=== PATIENT | female | born 2000 ===

== ENCOUNTER 2023-01-04 10:53 | Inpatient (IN) | payer MEDICAID ==
[~2023-01-04] VITALS: Ht 162.6 cm; Wt 106.1 kg
[2023-01-04 12:14] LABS: Basophils # (auto) 0 10 ^3/uL (0-0.2); Basophils % (auto) 0.3 % (0.0-2.0); Hematocrit 36.4 % (36.0-46.0); Hemoglobin 11.8 g/dL (12.2-16.2); Monocytes # (auto) 0.4 10 ^3/uL (0-1.3); Monocytes % (auto) 3.3 % (0.0-12.0); Red Blood Cells 4.49 10^6/uL (4.0-5.20)
[2023-01-04 12:16] LABS: Eosinophils # (auto) 0 10 ^3/uL (0-0.8); Eosinophils % (auto) 0.3 % (0.0-7.0); Lymphocytes # (auto) 1.9 10 ^3/uL (0.4-5.4); Lymphocytes % (auto) 15.3 % (10.0-50.0); Mean Corpuscular Hemoglobin 26.3 pg (28.0-32.0); Mean Corpuscular Hgb Conc. 32.4 g/dL (32.0-36.0); Mean Corpuscular Volume 81.1 fL (80.0-100.0); Neutrophils # (auto) 10.2 10 ^3/uL (1.6-8.6); Neutrophils % (auto) 80.8 % (37.0-80.0); Nucleated Red Blood Cells % 0.2 %; Red Cell Distribution Width 14.1 % (11.8-14.3); White Blood Cell 12.6 10^3/uL (4.4-10.8)
[2023-01-04 12:29] LABS: Albumin 2.6 g/dL (3.4-5.0); Calcium 8.5 mg/dL (8.5-10.1); Potassium 3.9 mmol/L (3.5-5.1)
[2023-01-04 12:33] LABS: BUN/Creatinine Ratio 12.1 (10.0-20.0); Bilirubin, Total 0.3 mg/dL (0.2-1.0); Total Protein 6.6 g/dL (6.4-8.2)
[2023-01-04 12:39] LABS: INR 0.92 (0.9-1.15); Partial Thromboplastin Time 27.1 sec (24.6-33.4)
[2023-01-04 12:39] LABS: Alcohol, Urine < 3.0 mg/dL (0-10); Amphetamine Screen, Urine NEGATIVE (NEGATIVE); Barbiturate Scree,Urine NEGATIVE (NEGATIVE); Benzodiazephine Screen, Urine NEGATIVE (NEGATIVE); Cannabinoid Screen, Urine NEGATIVE (NEGATIVE); Cocaine Screen, Urine NEGATIVE (NEGATIVE); Opiate Scree,Urine NEGATIVE (NEGATIVE); Phencyclidine Screen, Urine NEGATIVE (NEGATIVE)
[2023-01-04] MEDS ORDERED: PHISODERM TOP SOLN 240ML BTL TOP PRN (12:45)
[2023-01-04] MEDS ORDERED: PROMETHAZINE HCL 25 MG/ML 1ML IV PRN (12:45)
[2023-01-04] MEDS ORDERED: WITCH HAZEL-GLYCERIN PAD TOP PRN (12:45)
[2023-01-04] MEDS ORDERED: DERMOPLAST 60ML BOTTLE TOP PRN (12:45)
[2023-01-04] MEDS ORDERED: LIDOCAINE 2%HCL (LOCAL ANESTH.) INJ 20ML MDV IJ PRN (12:45)
[2023-01-04] MEDS ORDERED: ceFAZolin 1GM/50ML 50 ML IV ONE (12:45)
[2023-01-04 12:53] LABS: Urine Bacteria FEW /hpf (None Seen); Urine Blood Negative /uL (Negative); Urine Mucus FEW (None Seen); Urine Specific Gravity 1.017 (1.001-1.035); Urine WBC 12 /hpf (0 - 5)
[2023-01-04] MEDS: LACTATED RINGER'S 1,000 ML IV SCH (13:59)
[2023-01-04] MEDS ORDERED: MORPHINE SULF PF 5 MG/10 ML VIAL ONE (15:20)
[2023-01-04] MEDS ORDERED: MIDAZOLAM HCL 2MG/2ML 2ml VIAL (1mg/ml) ONE (15:22)
[2023-01-04] MEDS ORDERED: fentaNYL CITRATE 100 MCG/2 ML VL ONE (15:22)
[2023-01-04] MEDS ORDERED: TETRACAINE 1% INJ 2 ML VIAL IJ ONE (15:27)
[2023-01-04] MEDS ORDERED: IBUP800T27 PO (15:42)
[2023-01-04] MEDS ORDERED: DOCU-94 PO (15:42)
[2023-01-04] MEDS ORDERED: HYDR-4902 PO (15:42)
[2023-01-04] MEDS ORDERED: LACT. RINGERS/OXYTOCIN 20UNITS 1,000 ML IV ONE ×2 (15:45→16:45)
[2023-01-04] MEDS ORDERED: ONDANSETRON HCL 4 MG/2 ML VIAL IV PRN ×3 (15:45→16:45)
[2023-01-04] MEDS ORDERED: ceFAZolin 1GM/50ML 50 ML IV SCH ×2 (15:45→16:45)
[2023-01-04] MEDS ORDERED: GUM (CHEWING) 1 GUM CHEW CHEW ONE ×2 (15:45→16:45)
[2023-01-04] MEDS ORDERED: CARBOPROST TROMETHAMINE 250 MCG/1ML VIAL IM ONE (16:23)
[2023-01-04] MEDS ORDERED: DexAMETHasone SOD PHOS 10MG/1ML VIAL INJ IV PRN (16:45)
[2023-01-04] MEDS ORDERED: MIDAZOLAM HCL 2MG/2ML 2ml VIAL (1mg/ml) IV PRN (16:45)
[2023-01-04] MEDS ORDERED: ePHEDrine SULFATE 50 MG/ML AMP IV PRN (16:45)
[2023-01-04] MEDS ORDERED: diphenhdrAMINE HCL 50 MG/1 ML VL IV PRN (16:45)
[2023-01-04] MEDS ORDERED: LABETALOL HCL 5 MG/ML 4ML SYRINGE IV PRN (16:45)
[2023-01-04] MEDS ORDERED: HYDROmorphone HCL 2 MG/ML VL/or syr IV PRN (16:45)
[2023-01-04] MEDS ORDERED: NALOXONE HCL 0.4 MG/ML VIAL IV PRN (16:45)
[2023-01-04] MEDS ORDERED: NALBUPHINE HCL 10 MG/1ml INJECTION SUBCUT ONE (16:45)
[2023-01-04] MEDS ORDERED: oxyTOCIN 10 UNIT/ML 10ML VIAL ONE (16:53)
[2023-01-04] MEDS ORDERED: ONDANSETRON HCL 4 MG/2 ML VIAL ONE (16:53)
[2023-01-04 18:35] VITALS: BP 124/83
[2023-01-04 19:35] VITALS: BP 133/83
[2023-01-04] MEDS ORDERED: ACETAMINOPHEN IV 1000 MG/100ML (10MG/ML) IV PRN (20:00)
[2023-01-04 20:35] VITALS: BP 130/86
[2023-01-04 21:39] VITALS: BP 124/65
[2023-01-04 22:39] VITALS: BP 124/63
[2023-01-04 23:39] VITALS: BP 115/65
[2023-01-04 23:44] LABS: Eosinophils % (auto) 0.3 % (0.0-7.0); Neutrophils # (auto) 16.3 10 ^3/uL (1.6-8.6); Red Cell Distribution Width 14.4 % (11.8-14.3); White Blood Cell 19.3 10^3/uL (4.4-10.8)
[2023-01-04 23:46] LABS: Basophils # (auto) 0.1 10 ^3/uL (0-0.2); Basophils % (auto) 0.3 % (0.0-2.0); Eosinophils # (auto) 0.1 10 ^3/uL (0-0.8); Hematocrit 33.7 % (36.0-46.0); Lymphocytes % (auto) 10.5 % (10.0-50.0); Mean Corpuscular Hgb Conc. 32.6 g/dL (32.0-36.0); Mean Corpuscular Volume 82.8 fL (80.0-100.0); Monocytes # (auto) 0.8 10 ^3/uL (0-1.3); Monocytes % (auto) 4.4 % (0.0-12.0); Neutrophils % (auto) 84.5 % (37.0-80.0); Nucleated Red Blood Cells % 0.3 %; Red Blood Cells 4.07 10^6/uL (4.0-5.20)
[2023-01-04] MEDS: ceFAZolin 1GM/50ML 50 ML IV SCH (23:57)
[2023-01-05] VITALS (12 sets, daily range): BP systolic 115–136; BP diastolic 46–86
[2023-01-05] MEDS ORDERED: KETOROLAC TROMETH 30 MG/ML 1ML VIAL IV PRN (03:30)
[2023-01-05] MEDS: LACTATED RINGER'S 1,000 ML IV SCH (04:49)
[2023-01-05 06:06] LABS: RPR Non Reactive (Non Reactive)
[2023-01-05 06:56] LABS: Basophils # (auto) 0 10 ^3/uL (0-0.2); Eosinophils # (auto) 0 10 ^3/uL (0-0.8); Eosinophils % (auto) 0.3 % (0.0-7.0); Lymphocytes # (auto) 1.4 10 ^3/uL (0.4-5.4); Mean Corpuscular Volume 82.9 fL (80.0-100.0)
[2023-01-05 06:59] LABS: Basophils % (auto) 0.3 % (0.0-2.0); Hematocrit 32.1 % (36.0-46.0); Hemoglobin 10.5 g/dL (12.2-16.2); Lymphocytes % (auto) 9.4 % (10.0-50.0); Mean Corpuscular Hgb Conc. 32.6 g/dL (32.0-36.0); Monocytes # (auto) 0.7 10 ^3/uL (0-1.3); Monocytes % (auto) 4.5 % (0.0-12.0); Neutrophils % (auto) 85.5 % (37.0-80.0); Nucleated Red Blood Cells % 0.2 %; Red Blood Cells 3.88 10^6/uL (4.0-5.20); Red Cell Distribution Width 14.3 % (11.8-14.3); White Blood Cell 15.2 10^3/uL (4.4-10.8)
[2023-01-05] MEDS: DOCUSATE CALCIUM 240 MG CAP PO SCH (08:06)
[2023-01-05] MEDS: SIMETHICONE 80 MG CHEWABLE TABLET PO SCH ×4 (08:08→22:01)
[2023-01-05] MEDS: DOCUSATE SOD 100 MG CAP PO SCH ×2 (08:09→22:00)
[2023-01-05] MEDS: ceFAZolin 1GM/50ML 50 ML IV SCH (08:39)
[2023-01-05] MEDS ORDERED: HYDROcodone-ACET 5/325MG TAB PO PRN (10:45)
[2023-01-05] MEDS ORDERED: BISACODYL 10 MG RECT SUPP PR PRN (10:45)
[2023-01-05] MEDS: HYDROcodone-ACET 5/325MG TAB PO PRN (11:15)
[2023-01-05] MEDS ORDERED: IBUPROFEN 800 MG TAB PO PRN (13:30)
[2023-01-05] MEDS ORDERED: PIPERACILLIN-TAZOB 3.375GM 100 ML IV SCH (14:00)
[2023-01-05] MEDS ORDERED: ACETAMINOPHEN 325 MG TAB PO PRN (14:00)
[2023-01-05] MEDS: IBUPROFEN 800 MG TAB PO PRN ×2 (14:08→22:07)
[2023-01-05 15:31] LABS: Albumin 2.2 g/dL (3.4-5.0); Calcium 7.9 mg/dL (8.5-10.1); Potassium 3.9 mmol/L (3.5-5.1)
[2023-01-05 15:34] LABS: BUN/Creatinine Ratio 9.1 (10.0-20.0); Bilirubin, Total 0.5 mg/dL (0.2-1.0); Total Protein 5.7 g/dL (6.4-8.2)
[2023-01-05 15:51] LABS: INR 0.97 (0.9-1.15); Partial Thromboplastin Time 30.5 sec (24.6-33.4)
[2023-01-05] MEDS ORDERED: PREN-96 PO (20:37)
[2023-01-05] MEDS: PIPERACILLIN-TAZOB 3.375GM 100 ML IV SCH (23:08)
[2023-01-06 03:00] VITALS: BP 125/80
[2023-01-06] MEDS: PIPERACILLIN-TAZOB 3.375GM 100 ML IV SCH ×4 (05:27→23:15)
[2023-01-06] MEDS: SIMETHICONE 80 MG CHEWABLE TABLET PO SCH ×4 (06:40→21:59)
[2023-01-06 06:50] VITALS: BP 129/78
[2023-01-06] MEDS: DOCUSATE SOD 100 MG CAP PO SCH ×2 (09:26→21:59)
[2023-01-06] MEDS: DOCUSATE CALCIUM 240 MG CAP PO SCH (09:26)
[2023-01-06] MEDS: IBUPROFEN 800 MG TAB PO PRN ×2 (09:26→19:41)
[2023-01-06 10:50] VITALS: BP 120/78
[2023-01-06 15:10] VITALS: BP 123/74
[2023-01-06 18:45] VITALS: BP 121/70
[2023-01-06 22:57] VITALS: BP 122/78
[2023-01-07 03:00] VITALS: BP 134/79
[2023-01-07] MEDS: PIPERACILLIN-TAZOB 3.375GM 100 ML IV SCH (05:09)
[2023-01-07] MEDS: SIMETHICONE 80 MG CHEWABLE TABLET PO SCH ×2 (05:30→12:24)
[2023-01-07 07:00] VITALS: BP 114/70
[2023-01-07] MEDS: IBUPROFEN 800 MG TAB PO PRN (09:20)
[2023-01-07] MEDS: DOCUSATE CALCIUM 240 MG CAP PO SCH (10:14)
[2023-01-07] MEDS: DOCUSATE SOD 100 MG CAP PO SCH (10:14)
[2023-01-07 11:26] VITALS: BP 123/68
[2023-01-07] MEDS: HYDROcodone-ACET 5/325MG TAB PO PRN (12:24)
== END 2023-01-07 14:52 | disposition home or self-care (01) | DRG 540 ==
LOC: LDRP 10:53 → OBSVTOIN 12:49 → LDRP 22:14
PROVIDERS: ADMIT Obstetrics & Gynecology; ATTEND Obstetrics & Gynecology
PROC: 10D00Z1 Extraction of Products of Conception, Low, Open Approach (ICD-10-PCS; principal; 2023-01-04 15:36)
DX: O32.1XX0 Maternal care for breech presentation, not applicable or unspecified (principal); O41.03X0 Oligohydramnios, third trimester, not applicable or unspecified; Z37.0 Single live birth; Z3A.38 38 weeks gestation of pregnancy
CPT/HCPCS: 36415; 59025; 76818; 80053; 80307; 81001; 81002; 83605; 85025; 85610; 85730; 86592; 86850; 86900; 86901; 87040; 94760; 96360; 96361; 96365; 96366; G0378; J0131; J0690; J2250; J2405; J2543; J2590